=== PATIENT | female | born 1975 | race Caucasian/White ===

== ENCOUNTER → 2022-11-18 | Day surgery (SDC) | payer BC ==
[~2022-11-18] MED LIST: Methacholine Chloride KIT IH SCH; Sodium Chloride For Inhalation 0.9% 3 ML NEB NEB SCH
== END ==
LOC: CSHSDC/OP 07:41
PROVIDERS: ATTEND Internal Medicine Critical Care Medicine
DX: J45.909 Unspecified asthma, uncomplicated (principal)
CPT/HCPCS: 94060; 94070; 94760; J7611; J7674